=== PATIENT | female | born 1975 | race Caucasian/White ===

== ENCOUNTER 2024-01-30 10:02 | Emergency (ER) | payer OTHER, SELFPAY ==
[2024-01-30 10:14] VITALS: BP 120/77
--- NOTE | 2024-01-30 11:21 | ED.GENMED ---
History of Present Illness
General
Chief Complaint: Abdominal Symptoms
Source: patient
Exam Limitations: none
Time Seen by Provider: 01/30/24 11:04
Nursing documentation reviewed up to this point in time: agreed with
History of Present Illness
History of Present Illness:
48 y/o F with h/o constipation
here with 2 days of feeling constipated, says she has to pay attention if it has been 2-3 days between BMs and take laxative like miralax to help
she dosen't remember last week how many times she went
2 days ago pt was in her daughter's room cleaning and felt a bad pain in her abdomen, thought it was gas, diffuse
took gasex and miralax but didn' thave BM
she didn't sleep that well and yesterday tried enema and stool softener pills, a tbsp of oil, and mineral oil without much relief. after the enema she was able to move a little bit of stool but didn't hold it in long, only 1 minute
she says the pain dissipated afterward
took another enema this mornig and waited 7 minutes beore trying to go and says not much came out and she still feels slightly bloated and ful
no vomiting, fever, chills, urinary syptoms, retention
no h/o diverticulitis
Past History
Past History
ED Past Medical History: Hypothyroidism
ED Past Surgical History:
Social History
Tobacco: Non-smoker
Living: with family
Employment: Employed
Review of Systems
Review of Systems
Allergies reviewed?: Yes
All Other Systems: Not applicable
Phy Exam
Physical Exam
Physical Exam:
GENERAL: Alert , in no apparent distressm, very comfortable
EYE: pupils equal and reactive
NECK: Supple
ENT: o/p clr, mmm.
CARDIAC: Regular rate and rhythm .
LUNGS: Clear breath sounds bilaterally, no acute respiratory distress, no wheezes/rales/rhonchi
ABDOMEN: Soft, nontender, slightly hyperactive bowel sounds, no r/g, no cvat,
RECTAL: normal inspection, no hemorrhoids, ,nontender, no stool in vault;
NEUROLOGICAL: Alert and oriented, no focal neuro deficits
SKIN: Warm and dry, skin intact.
PSYCH: Normal and appropriate interaction.
Course
Orders/Labs/Results
Orders:
Orders
01/30/24 11:19
CR Obstruct Series W/pa Chest Urgent
Comment:
Reason For Exam: constipation
01/30/24 10:42
01/30/24 10:42
Vital Signs
Temp: 98.5 F
Initial and Last Documented VS:
Initial Vital Signs
Temp Pulse Resp BP Pulse Ox
99.2 F 83 20 120/77 96
01/30/24 10:14 01/30/24 10:14 01/30/24 10:14 01/30/24 10:14 01/30/24 10:14
Last Documented Vital Signs
Temp Pulse Resp BP Pulse Ox
99.2 F 82 16 125/79 100
01/30/24 10:14 01/30/24 12:56 01/30/24 12:56 01/30/24 12:56 01/30/24 12:56
MDM/Problems Addressed
Differential Diagnosis Includes:
constipation, bloating, diverticulitis, gas pains
MDM/Problems Addressed:
48 y/o F with h/o constipation issues from childhood
here afte rhaving bad pain in her abdomen 2 days ago that nearly resolved but she still feels lie she is gassy bloated and has stool despite a few differnet attempts at relieving (1 dose stool softneer, a few laxatives,, and 2 enemas, though it
doesn't soundl keila she held the enemas in long)
she did have some stool but still feels some bloating
no fever/chills
pain is certainly better ribeiro previous
no vmoiting nausea
still able to eat
well appearing
comfortable
intially temp 99.2 but retemp 98.5
abdominal exam benign, nontender, no distention; mild hyperactive bowel sonds
no fecal impaction rectal exam
xray shows nonspecific bowel gas pattern but no obstruction
smoe stool
discussed persuing with labs/ct but pt declines for now
she wants to try mag citrate or mirlax twice ad ay for 2-3 days
return precautions.
*Critical Care Note
Total Time (30-74mins, 75-104mins- exclusive of procedures): Not Applicable
ED Attending Note
-
Portions of this chart may have been created with voice recognition software.� Occasional wrong word or��sound alike� substitutions may have occurred due to the inherent limitations of voice recognition software.
Discharge Plan
Departure
Patient Disposition: Home (Routine Discharge)
Date of Disposition: 01/30/24
Time of Disposition: 12:53
Patient with high blood pressure during this ER visit?: No
Condition: Fair
Covid-19: Not Applicable
Discharge Problem:
Constipation, Abdominal gas pain
Instructions: Constipation, Adult (DC)
Prescriptions:
No Action
ondansetron 4 MG tablet,disintegrating
4 mg PO TIDPRN PRN (Reason: nausea/vomiting) Qty: 12 0RF
Referrals:
Kerri Padron CRNP [Family Provider] -
Activity Restrictions/Additional Instructions:
YOUR XRAY DOES APPEAR TO HAVE SOME GAS AND STOOL BUT NO SIGNS OF BOWEL BLOCKAGE(OBSTRUCTION)
TRY MIRALAX CAP FULL IN WATERO R GATORADE TWICE TODAY
IF YOU DO NOT HAVE A BM OR STILL FEEL SYMPTOMATIC YOU CAN TRY MAGNESIUM CITRATE 1/2 BOTTLE (150 ML) IN THE MORNING TOMORROW AND 1/2 AT NIGHT IF NO BM AFTER THE FIRST DOSE
DRINK PRUNE JUICE, WATER, STAY HYDRATED
USE METAMUCIL DAILY TO HELP WITH STOOL SOFTENING
IF YOU HAVE FEVER, WOSRE PAIN, VOMTING, BLOODY OR DARK STOOL RETURN IMMEDAITELY FO RMORE WORK UP
Interventions
Interventions:
*Risk Screen - Suicide Last Done: 01/30/24 10:14
*General Assessment Last Done: 01/30/24 10:14
*Neglect/Abuse Screening Last Done: 01/30/24 10:14
ED- Fall Risk Assessment Last Done: 01/30/24 12:57
*ED COVID-19 Vaccine History Last Done: 01/30/24 12:56
*Nursing Disposition Last Done: 01/30/24 13:21
[facility] Assessment Last Done: 01/30/24 12:31
Discharge Date and Time
Discharge Date/Time: 01/30/24 13:22
Print Language: GERMAN
[2024-01-30 12:56] VITALS: BP 125/79
== END 2024-01-30 13:22 | disposition home or self-care (01) ==
LOC: EMR 10:02
PROVIDERS: EMERGENCY PHYSICIAN Emergency Medicine; FAMILY PHYSICIAN Nurse Practitioner Family
DX: K59.00 Constipation, unspecified (principal); R14.1 Gas pain; R10.9 Unspecified abdominal pain; E03.9 Hypothyroidism, unspecified
CPT/HCPCS: 99283; 74022

== ENCOUNTER 2024-05-14 14:09 | Emergency (ER) | payer OTHER, SELFPAY ==
[2024-05-14 14:37] VITALS: BP 126/85
--- NOTE | 2024-05-14 14:45 | ED.GENMED ---
ED Provider Triage
<Michelle Barkley PA-C - Last Filed: 05/14/24 14:49>
-
Patient seen by provider in Triage?: Seen in Triage
Attestation: A medical screening examination has been initiated by a qualified medical provider. Based on the assessment performed at this time, it has been determined that an emergent medical condition may exist and the patient has been informed
that further medical evaluation and possible additional diagnostic testing may be needed.
HPI: 49yoF here with chest pain. Started last night after she was finished exercising. No pain during exercising. L sided chest pain radiating down L arm. Pain now resolved. Hx of HLD and remote history of thyroid cancer.
GENERAL: Alert , in no apparent distress
EYE: No visual abnormalities.
NECK: Trachea midline
ENT: No visible abnormalities.
LUNGS: No acute respiratory distress
NEUROLOGICAL: Alert and oriented
SKIN: Skin intact. No visible changes.
MUSCULOSKELETAL: Moving extremities normally
PSYCH: Normal and appropriate interaction.
This is a medical evaluation conducted in person to initiate diagnostic evaluation and provide initial therapeutics. Please see further documentation by the treating clinician.
Cardiac labs, EKG, and CXR ordered.
History of Present Illness
<Michelle Barkley PA-C - Last Filed: 05/14/24 14:49>
General
Chief Complaint: Chest Pain
Time Seen by Provider: 05/14/24 17:29
<Yandel Rivera DO - Last Filed: 05/14/24 18:06>
History of Present Illness
History of Present Illness:
TIME OF INITIAL ENCOUNTER:
HPI: CP started last night after she was finished exercising. She was using an EMS/TENS unit. No pain during exercising. L sided chest pain radiating down L arm. Pain now resolved. She chronically does have some left chest/shoulder discomfort and
states she is under a lot of stress.
EXAM:
GENERAL: Well appearing in no distress
HEENT: Moist oral mucosa
CARDIOVASCULAR: No murmurs, normal heart rate, regular rhythm, No chest wall tenderness
PULMONARY: No respiratory distress, breath sounds are clear and equal
ABDOMEN: Soft with no peritoneal signs, no tenderness
NEUROLOGIC: Excellent strength all extremities, no coordination deficits
PSYCHIATRIC: Appropriate mental status, normal insight and judgement
EXTREMITIES: Mild anterior left shoulder/left anterior chest wall tenderness
SKIN: No rash, no lesions
NUMBER AND COMPLEXITY OF PROBLEMS ADDRESSED AT THE ENCOUNTER
� Chronic conditions affecting care: Thyroid cancer, hyperlipidemia, ADHD/depression
� Acute Exacerbation and/or Progression of Chronic Illness: This is an acute problem
� Differential Diagnosis includes: Muscle strain, pain related to EMS use, ACS, pneumothorax, pneumonia
AMOUNT AND/OR COMPLEXITY OF DATA TO BE REVIEWED AND ANALYZED
� I performed an independent evaluation of and my interpretation is:
EKG: Sinus 97, no acute ST abnormality, no old to compare
CT:
X-rays: Chest x-ray unremarkable
Laboratory Studies: CBC, chemistries and troponin unremarkable except for a creatinine of 1.2
Other:
� Review of other/old records: The patient was seen here with abdominal discomfort a couple of months ago.
� Clinical information was obtained by an independent historian: None needed
� Prescriptions/Medications Considered but not given:
� Further testing considered but not performed:
RISK OF COMPLICATIONS AND/OR MORBIDITY OR MORTALITY OF PATIENT MANAGEMENT
� Social determinants of health affecting care: Lives at home
� Discussion with other providers:
� Escalation of care including admission/observation vs risk of discharge considered: The patient used to see Dr. Renteria patient appears very comfortable and had virtually no symptoms today. To follow-up with them as an
outpatient.
ANY OTHER UPDATES:
Past History
Joselt;Michelle Barkley PA-C - Last Filed: 05/14/24 14:49>
Past History
ED Past Medical History: Hypothyroidism
ED Past Surgical History:
Social History
Tobacco: Non-smoker
Living: with family
Employment: Employed
Phy Exam
<Yandel Rivera DO - Last Filed: 05/14/24 18:06>
Physical Exam
Physical Exam:
See HPI
Scores
<Yandel Rivera, DO - Last Filed: 05/14/24 18:06>
Heart Score for Chest Pain Patients
STEMI patient?: Not applicable
Course
<SHERRIE RivasC - Last Filed: 05/14/24 14:49>
Orders/Labs/Results
Orders:
Orders
05/14/24 14:10
Electrocardiogram (*1) Urgent
Reason for Study: Chest Pain
EKG- Treatment ONCE
05/14/24 14:47
CMP [Comprehensive Metabolic Panel] Urgent
Complete Blood Count/With Diff Urgent
Troponin I Urgent
05/14/24 14:49
CR Chest - 2 Views Urgent
Comment:
Reason For Exam: CP
Abnormal Lab Results
05/14/24
14:47
Creatinine 1.2 H mg/dL
(0.6-1.0)
Glucose 102 H mg/dl
(70-99)
05/14/24 14:47
05/14/24 14:47
Vital Signs
Initial and Last Documented VS:
Initial Vital Signs
Temp Pulse Resp BP Pulse Ox
98.3 F 87 18 126/85 98
05/14/24 14:37 05/14/24 14:37 05/14/24 14:37 05/14/24 14:37 05/14/24 14:37
Last Documented Vital Signs
Temp Pulse Resp BP Pulse Ox
98.3 F 87 18 126/85 98
05/14/24 14:37 05/14/24 14:37 05/14/24 14:37 05/14/24 14:37 05/14/24 14:37
<Yandel Rivera, DO - Last Filed: 05/14/24 18:06>
Orders/Labs/Results
Orders:
Orders
05/14/24 14:10
Electrocardiogram (*1) Urgent
Reason for Study: Chest Pain
EKG- Treatment ONCE
05/14/24 14:47
CMP [Comprehensive Metabolic Panel] Urgent
Complete Blood Count/With Diff Urgent
Troponin I Urgent
05/14/24 14:49
CR Chest - 2 Views Urgent
Comment:
Reason For Exam: CP
Abnormal Lab Results
05/14/24
14:47
Creatinine 1.2 H mg/dL
(0.6-1.0)
Glucose 102 H mg/dl
(70-99)
05/14/24 14:47
05/14/24 14:47
Vital Signs
Initial and Last Documented VS:
Initial Vital Signs
Temp Pulse Resp BP Pulse Ox
98.3 F 87 18 126/85 98
05/14/24 14:37 05/14/24 14:37 05/14/24 14:37 05/14/24 14:37 05/14/24 14:37
Last Documented Vital Signs
Temp Pulse Resp BP Pulse Ox
98.3 F 87 18 126/85 98
05/14/24 14:37 05/14/24 14:37 05/14/24 14:37 05/14/24 14:37 05/14/24 14:37
<Yandel Rivera, DO - Last Filed: 05/14/24 18:06>
*Critical Care Note
Total Time (30-74mins, 75-104mins- exclusive of procedures): Not Applicable
ED Attending Note
<Michelle Barkley PA-C - Last Filed: 05/14/24 14:49>
-
Portions of this chart may have been created with voice recognition software.� Occasional wrong word or��sound alike� substitutions may have occurred due to the inherent limitations of voice recognition software.
Discharge Plan
Departure
Prescriptions:
No Action
ondansetron 4 MG tablet,disintegrating
4 mg PO TIDPRN PRN (Reason: nausea/vomiting) Qty: 12 0RF
Referrals:
Kerri Padron CRNP [Family Provider] -
Interventions
Interventions:
*Risk Screen - Suicide Last Done: 05/14/24 14:37
*Neglect/Abuse Screening Last Done: 05/14/24 14:37
*ED COVID-19 Vaccine History Last Done: 05/14/24 14:37
Discharge Date and Time
Print Language: COLOMBIAN
[2024-05-14 15:04] LABS: % Basophils 0.4 % (0-2); % Eosinophils 0.2 % (0-6); % Immature Granulocytes 0.4 % (0-0.5); % Lymphocytes 36.9 % (20.5-51.1); % Monocytes 8.5 % (1.7-9.3); % Neutrophils 53.6 % (42.2-75.2); Absolute Lymphocytes 2.1 10^3/uL (1.2-3.4); Absolute Monocytes 0.5 10^3/uL (0.1-0.6); Hematocrit 37.1 % (37.0-47.0); Hemoglobin 12.6 g/dL (12.0-16.0); Mean Corpuscular Hgb 28.8 pg (27.0-31.0); Mean Corpuscular Volume 84.7 fL (81.0-99.0); Mean Platelet Volume 9.8 fL (7.4-10.4); Nucleated Red Blood Cells % 0 %; Platelet Count 243 10^3/uL (130-400); Red Blood Cell Count 4.38 10^6/uL (4.20-5.40); Red Cell Dist. Width 12.5 % (11.5-14.5); White Blood Cell Count 5.6 10^3/uL (4.8-10.8)
[2024-05-14 15:14] LABS: ALT (SGPT) 23 U/L (0-35); AST (SGOT) 23 U/L (14-36); Albumin 4.4 g/dl (3.5-5.0); Alkaline Phosphatase 76 U/L (38-126); Blood Urea Nitrogen 17 mg/dl (7-17); Calcium 9.7 mg/dl (8.4-10.2); Carbon Dioxide 27 mmol/L (22-30); Chloride 102 mmol/L (98-107); Glucose 102 mg/dl (70-99); Potassium 4.2 mmol/L (3.5-5.1); Sodium 138 mmol/L (135-145); Total Bilirubin 1.2 mg/dl (0.2-1.3); Total Protein 7.1 g/dl (6.3-8.2); eGFR 55.84
[2024-05-14 15:26] LABS: Troponin I < 0.012 ng/ml
[2024-05-14 18:55] VITALS: BP 135/84
== END 2024-05-14 18:57 | disposition home or self-care (01) ==
LOC: EMR 14:09
PROVIDERS: Physician Assistant; EMERGENCY PHYSICIAN Emergency Medicine; FAMILY PHYSICIAN Nurse Practitioner Family
DX: R07.89 Other chest pain (principal); E78.5 Hyperlipidemia, unspecified; Z85.850 Personal history of malignant neoplasm of thyroid
CPT/HCPCS: 99285; 71046; 80053; 84484; 85025; 93005

== ENCOUNTER → 2024-05-23 07:20 | Outpatient (REF) | payer OTHER, SELFPAY | LOC: RCS 07:20 | PROVIDERS: ATTENDING PHYSICIAN Internal Medicine Cardiovascular Disease; FAMILY PHYSICIAN Nurse Practitioner Family | DX: R07.2 Precordial pain (principal) | CPT/HCPCS: 93017 ==

== ENCOUNTER → 2025-03-05 16:26 | Outpatient (REF) | payer OTHER, SELFPAY | LOC: RAD 16:26 | PROVIDERS: ATTENDING PHYSICIAN Nurse Practitioner Family | DX: M25.531 Pain in right wrist (principal) | CPT/HCPCS: 73110 ==